=== PATIENT | male | born 1955 | race Caucasian/White ===

== ENCOUNTER → 2020-08-28 | Outpatient (CLI) | payer OTHER ==
[~2020-08-28] MED LIST: CELECOXIB400 MG PO; CO Q-10200 MG PO; COUMADIN7.5 MG PO; CRESTOR20 MG PO; CYMBALTA60 MG PO; DELSYM30 MG/5 ML PO; DEPO-TESTO200 MG/1 M IM; DULOXETINE HCL60 MG PO; ELIQUIS5 MG PO; FLOMAX0.4 MG PO; GLUCOPHAGE500 MG PO; LOVENOX SYR150 MG/ML SQ; NEURONTIN 400400 MG PO; VITAMIN D250000 UNIT PO; XARELTO20 MG PO; ZYLOPRIM 300 M300 MG PO
== END ==
LOC: KOH-I 08-09 16:00
DX: R29.2 Abnormal reflex (principal); M51.16 Intervertebral disc disorders with radiculopathy, lumbar region; M48.061 Spinal stenosis, lumbar region without neurogenic claudication
CPT/HCPCS: 72148

== ENCOUNTER 2020-10-11 11:11 | Emergency (ER) | payer OTHER ==
[~2020-10-11] VITALS: Ht 182.9 cm; Wt 154.2 kg
[~2020-10-11 11:11] MED LIST changes: -DELSYM30 MG/5 ML PO
[2020-10-11] MEDS ORDERED: DELSYM30 MG/5 ML PO (14:58)
== END 2020-10-11 15:10 | disposition home or self-care (01) ==
LOC: ER1 11:11
DX: U07.1 COVID-19 (principal); F17.200 Nicotine dependence, unspecified, uncomplicated; Z86.718 Personal history of other venous thrombosis and embolism
CPT/HCPCS: 99283; U0002

== ENCOUNTER → 2021-02-03 | Outpatient (CLI) | payer OTHER ==
[~2021-02-03] MED LIST changes: +DELSYM30 MG/5 ML PO
== END ==
LOC: EXRD 10:44
DX: M25.562 Pain in left knee (principal); M25.561 Pain in right knee
CPT/HCPCS: 73564